=== PATIENT | male | born 1975 | race Caucasian/White ===

== ENCOUNTER 2016-11-06 07:24 | Emergency (ER) | payer MEDICARE ==
[~2016-11-06] VITALS: Ht 177.8 cm; Wt 80.0 kg
[2016-11-06 07:28] VITALS: BP 137/82; PULSE 89; RESP 16; TEMP 98.5; O2SAT 96
--- NOTE | 2016-11-06 07:38 | PD ---
HPI Chief Complaint: Musculoskeletal Complaint Time Seen by Provider: 07:35 Travel History International Travel<30 days: No Contact w/Intl Traveler<30days: No Traveled to known affect area: No History of Present Illness HPI 40-year-old male with history of no significant past medical issues, presents to the ER today because he states that he had changed a tire manually yesterday with the tire iron and overnight started having right shoulder pains which he currently measures and 8 out of 10. He states that it is worse with movement of the right shoulder. He denies injuries. He denies any other issues. Modifying Factors: None Associated Signs & Symptoms: Right shoulder pain Risk Factors: None PFSH Social History Tobacco Use: No Allergies-Medications (Allergen,Severity, Reaction): Coded Allergies: Toradol (Verified Allergy, Intermediate, ITCHING, GI UPSET, 11/06/16) Reported Meds & Prescriptions Reported Meds & Active Scripts Active No Active Prescriptions or Reported Medications Review of Systems Except as stated in HPI: all other systems reviewed are Neg Physical Exam Narrative GENERAL: Well-nourished, well-developed middle age white male patient in moderate distress. Awake and oriented 3. SKIN: Focused skin assessment warm/dry. HEAD: Normocephalic. EYES: No scleral icterus. No injection or drainage. NECK: Supple, trachea midline. No JVD or lymphadenopathy. CARDIOVASCULAR: Regular rate and rhythm without murmurs, gallops, or rubs. RESPIRATORY: Breath sounds equal bilaterally. No accessory muscle use. GASTROINTESTINAL: Abdomen soft, non-tender, nondistended. MUSCULOSKELETAL: No cyanosis, or edema. EXTREMITIES: No clubbing, cyanosis, or edema. No joint tenderness, effusion, or edema noted. There is tenderness to palpation of the right shoulder joint area laterally and posteriorly at the joint area without obvious deformities, neurovascularly intact no obvious bony deformities. BACK: Nontender without obvious deformity. No CVA tenderness. Data Data Last Documented VS Vital Signs Date Time Temp Pulse Resp B/P Pulse Ox O2 Delivery O2 Flow Rate FiO2 11/06/16 07:28 98.5 89 16 137/82 96 Orders Shoulder, Complete (>2vws) (11/06/16 07:35) Acetamin-Hydrocod 325-5 Mg ([place] 5-325 (11/06/16 07:45) Cyclobenzaprine (Flexeril) (11/06/16 07:45) [facility] Medical Decision Making Medical Screen Exam Complete: Yes Emergency Medical Condition: Yes Medical Record Reviewed: Yes Interpretation(s) Last 24 hours Impressions Shoulder X-Ray 11/06/16 0770 Signed Impressions: Service Date/Time: , November 06, 2016 08:03 - CONCLUSION: No acute fracture. Possible calcific tendinitis. Byron Rodriguez MD Differential Diagnosis Right shoulder painstrain versus rotator cuff tear versus fracture Narrative Course X-ray did not show any signs of acute bony issues. It appears that he may have some underlying calcific tendinitis which may have been exacerbated with his strenuous activity with the car. My plan would be to give him symptomatic relief and have him follow-up with primary care physician. Return for any worsening in pain or new symptoms as needed. The plan was discussed with him and he states understanding. Diagnosis Primary Impression: Right shoulder strain Med/Other Pt SpecificInfo: Prescription(s) given Scripts Cyclobenzaprine (Flexeril)10 Mg Tab10 Mg PO TID #12 TAB Ref 0 Prov:Gabriel Vu MD 11/06/16 Ibuprofen (Motrin Ib)200 Mg [id number] Mg PO QID PRN (PAIN SCALE 1 TO 10) #20 Prov:Gabriel Vu MD 11/06/16 Disposition: 01 DISCHARGE HOME Condition: Stable Gabriel Vu MD Nov 06, 2016 07:38
[2016-11-06] MEDS ORDERED: CYCLOBENZAPRINE HCL 10 MG TAB PO ONE (07:45)
[2016-11-06] MEDS ORDERED: ACETAMINOPHEN/HYDROcodone 325 MG/5 MG TAB PO ONE (07:45)
--- NOTE | 2016-11-06 08:17 | RADRPT ---
EXAM DATE/TIME: 11/06/2016 08:03 [facility] COMPARISON: No previous studies available for comparison. INDICATIONS : Right shoulder pain, woke up yesterday painful, no known injury. MEDICAL HISTORY : None. SURGICAL HISTORY : None. ENCOUNTER: Initial ACUITY: 2 days PAIN SCORE: 10/10 LOCATION: Right shoulder FINDINGS: Multiple view examination of the right shoulder demonstrates no evidence of fracture or dislocation. The glenohumeral and acromioclavicular joints are maintained. Small calcification adjacent to the l ateral humeral head. There is normal range of motion between internal and external rotation. Bony mi neralization is normal. CONCLUSION: No acute fracture. Possible calcific tendinitis. Byron Rodriguez MD on November 06, 2016 at 8:16 Board Certified Radiologist. This report was verified electronically.
[2016-11-06] MEDS ORDERED: CYCL1TAB29 PO ×2 (08:31→08:41)
[2016-11-06] MEDS ORDERED: IBUP-1129 PO ×2 (08:31→08:41)
== END 2016-11-06 08:49 | disposition home or self-care (01) ==
LOC: PHEFT 07:24
DX: S46.911A Strain of unspecified muscle, fascia and tendon at shoulder and upper arm level, right arm, initial encounter (principal); X50.0XXA Overexertion from strenuous movement or load, initial encounter; Y93.89 Activity, other specified; Y92.9 Unspecified place or not applicable
CPT/HCPCS: 73030; 99283

== ENCOUNTER 2016-11-08 05:41 | Emergency (ER) | payer MEDICARE ==
[~2016-11-08] VITALS: Ht 177.8 cm; Wt 80.5 kg
[~2016-11-08 05:41] MED LIST: CYCL1TAB29 PO; IBUP-1129 PO
[2016-11-08 05:46] VITALS: BP 121/80; PULSE 96; RESP 18; TEMP 98.2; O2SAT 96
[2016-11-08] MEDS ORDERED: PRED50 PO (06:53)
[2016-11-08] MEDS ORDERED: predniSONE 20 MG TAB PO ONE (07:00)
[2016-11-08] MEDS ORDERED: PERC5TAB12 PO (07:01)
--- NOTE | 2016-11-08 07:01 | PD ---
HPI Chief Complaint: Pain: Acute or Chronic Time Seen by Provider: 06:50 Travel History International Travel<30 days: No Contact w/Intl Traveler<30days: No Traveled to known affect area: No History of Present Illness HPI The patient is a 40-year-old [id number] male who was cranking a shanita using his right arm 5 days ago. He did not have any discomfort for the first 2 days but then beginning having severe discomfort in his right anterior shoulder for the last few days. X-rays were normal when he came to emergency department several days ago. He denies any trauma. [facility] Past Medical History Medical History: Denies Significant Hx Diminished Hearing: No Tetanus Vaccination: < 5 Years Influenza Vaccination: No Past Surgical History Surgical History: No Previous Surgery Social History Alcohol Use: No Tobacco Use: No Substance Use: No Allergies-Medications (Allergen,Severity, Reaction): Coded Allergies: Toradol (Verified Allergy, Intermediate, ITCHING, GI UPSET, 11/08/16) Reported Meds & Prescriptions Reported Meds & Active Scripts Active Flexeril (Cyclobenzaprine HCl) 10 Mg Tab 10 Mg PO TID Motrin Ib (Ibuprofen) 200 Mg Tablet 600 Mg PO QID PRN Review of Systems Except as stated in HPI: all other systems reviewed are Neg Physical Exam Narrative GENERAL: Well-nourished, well-developed patient in moderate apparent distress with his right anterior shoulder pain. His vital signs are normal. SKIN: Focused skin assessment warm/dry. HEAD: Normocephalic. EYES: No scleral icterus. No injection or drainage. NECK: Supple, trachea midline. No JVD or lymphadenopathy. CARDIOVASCULAR: Regular rate and rhythm without murmurs, gallops, or rubs. RESPIRATORY: Breath sounds equal bilaterally. No accessory muscle use. GASTROINTESTINAL: Abdomen soft, non-tender, nondistended. MUSCULOSKELETAL: No cyanosis, or edema. No erythema is present but there is exquisite tenderness over the anterior portion of the right shoulder. There is no evidence of subluxation/dislocation. The capillary refill and pinprick is present distally on the right arm. There is no neck tenderness that reproduces the patient's pain. BACK: Nontender without obvious deformity. No CVA tenderness. Data Data Last Documented VS Vital Signs Date Time Temp Pulse Resp B/P Pulse Ox O2 Delivery O2 Flow Rate FiO2 11/08/16 05:46 98.2 96 18 121/80 96 Orders Prednisone (Deltasone) (11/08/16 07:00) [facility] Medical Decision Making Medical Screen Exam Complete: Yes Emergency Medical Condition: Yes Medical Record Reviewed: Yes Differential Diagnosis Bursitis right shoulder, cervical radiculopathy, rotator cuff tear, subluxation/ dislocation right shoulderunlikely Narrative Course The patient appears to have a bursitis of the right shoulder. Plan: The patient is already tried Motrin and will be put on prednisone on a tapered course. We'll need to follow-up with orthopedics. He is given an ice pack and told to use an ice pack and a sling. 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 Diagnosis Primary Impression: Bursitis of right shoulder Additional Instructions: As we discussed, follow-up with orthopedics. They can inject this area and give you better relief if they feel injection is warranted. Med/Other Pt SpecificInfo: Prescription(s) given Scripts Oxycodone-Acetaminophen (Percocet)5-325 mg Tab1 Tab PO Q4H PRN (PAIN) #30 TAB Ref 0 Prov:Davy Garcia MD 11/08/16 Prednisone 50 Mg Tab50 Mg PO BID #12 TAB Ref 0 Prov:Davy Garcia MD 11/08/16 Disposition: 01 DISCHARGE HOME Condition: Stable Davy Garcia MD Nov 08, 2016 07:01
== END 2016-11-08 07:09 | disposition home or self-care (01) ==
LOC: PHED 05:41
DX: M75.51 Bursitis of right shoulder (principal)
CPT/HCPCS: 99284; J7512